=== PATIENT | male | born 1945 | race Caucasian/White ===

== ENCOUNTER 2017-12-02 23:30 | Inpatient (IN) | payer BC, MEDICARE ==
[~2017-12-02] VITALS: Ht 190.5 cm; Wt 106.3 kg
[2017-12-03] MEDS ORDERED: ONDANSETRON HCL MDV 20ML 2 MG/ML VIAL ONE
[2017-12-03] MEDS ORDERED: SODIUM CHLORIDE 0.9% 1000ML 1,000 ML IV ONE (00:01)
[2017-12-03 00:11] LABS: HEMATOCRIT 35.3 % (42-54); MEAN CORPUSCULAR HEMOGLOBIN 29.1 pg (27.0-33.0); MEAN CORPUSCULAR HGB CONC 33.3 g/dL (32.0-36.0); NUCLEATED RED BLOOD CELLS 0.1 % (0.0-0.19); WHITE BLOOD COUNT (AUTO) 4.2 K/uL (4.8-10.8)
[2017-12-03 00:13] LABS: CREATININE 0.7 mg/dL (0.5-1.5); POTASSIUM 3.8 mmol/L (3.5-5.1)
[2017-12-03 00:22] LABS: ALBUMIN 2.6 g/dL (3.5-5.0); BILIRUBIN,TOTAL 15.2 mg/dL (0.2-1.0); MEAN CORPUSCULAR VOLUME 87.5 fL (79-99); PLATELET COUNT (AUTO) 130 K/uL (130-400); RED BLOOD CELL COUNT(AUTO) 4.03 MIL/uL (4.50-6.20); RED CELL DISTRIBUTION WIDTH 20.3 % (11.0-15.5); TOTAL PROTEIN, SERUM 6.8 g/dL (6.0-8.3)
[2017-12-03 00:23] LABS: BILIRUBIN,DIRECT 13.1 mg/dL (0.0-0.3)
[2017-12-03 00:26] LABS: AMYLASE 38 U/L (25-115); LIPASE 379 U/L (114-286)
[2017-12-03 00:47] LABS: BAND NEUTROPHILS % (MANUAL) 11 % (0-2); LYMPHOCYTES % (MANUAL) 19 % (22-44); MONOCYTES % (MANUAL) 7 % (2-9); SEGMENTED NEUTROPHILS % 63 % (40-70)
[2017-12-03 00:48] LABS: MAN.DIFF COMMENT-IMPRESSION MANUAL DIFFERENTIAL
[2017-12-03 00:51] LABS: BILIRUBIN,URINE Large (NEGATIVE); GLUCOSE, URINE (UA) >=1000 mg/dL (NEGATIVE); KETONES,URINE Negative (NEGATIVE); LEUKOCYTE ESTERASE ,URINE Trace (NEGATIVE); NITRATE,URINE Positive (NEGATIVE); OCCULT BLOOD,URINE Negative (NEGATIVE); PROTEIN,URINE Trace (NEGATIVE)
[2017-12-03 00:53] LABS: APPEARANCE,URINE SLIGHTLY CLOUDY (CLEAR); COLOR,URINE AMBER (YELLOW)
[2017-12-03 00:54] LABS: PLATELET MORPHOLOGY COMMENT ADEQUATE
[2017-12-03 01:04] LABS: BACTERIA,URINE None Seen /HPF (None Seen); RBC,URINE 0-1 /HPF (0-1); WBC,URINE 0-1 /HPF (0-1); YEAST,URINE BUDDING None Seen /HPF (None Seen)
[2017-12-03 01:05] LABS: MUCUS,URINE Rare LPF (None Seen); SQUAMOUS EPITHELIAL CELL,UR Rare /HPF (0-2)
[2017-12-03 05:24] LABS: CREATININE 0.7 mg/dL (0.5-1.5); POTASSIUM 3.9 mmol/L (3.5-5.1)
[2017-12-03 05:28] LABS: HEMATOCRIT 35.7 % (42-54); MEAN CORPUSCULAR HEMOGLOBIN 29.2 pg (27.0-33.0); MEAN CORPUSCULAR VOLUME 88.3 fL (79-99); NUCLEATED RED BLOOD CELLS 0.1 % (0.0-0.19); PLATELET COUNT (AUTO) 132 K/uL (130-400); RED BLOOD CELL COUNT(AUTO) 4.04 MIL/uL (4.50-6.20); RED CELL DISTRIBUTION WIDTH 20.4 % (11.0-15.5); WHITE BLOOD COUNT (AUTO) 4.7 K/uL (4.8-10.8)
[2017-12-03 05:30] VITALS: BP 141/67
[2017-12-03 06:05] LABS: BAND NEUTROPHILS % (MANUAL) 6 % (0-2); BASOPHILS % (MANUAL) 2 % (0-2); EOSINOPHILS % (MANUAL) 2 % (1-6); LYMPHOCYTES % (MANUAL) 21 % (22-44); MONOCYTES % (MANUAL) 9 % (2-9); REACTIVE LYMPHOCYTES 1 % (0-0); SEGMENTED NEUTROPHILS % 59 % (40-70)
[2017-12-03 06:06] LABS: MAN.DIFF COMMENT-IMPRESSION MANUAL DIFFERENTIAL
[2017-12-03 06:07] LABS: PLATELET MORPHOLOGY COMMENT ADEQUATE
[2017-12-03] MEDS ORDERED: MORPHINE SULFATE 4 MG/1ML SYG ONE (06:49)
[2017-12-03] MEDS: MORPHINE SULFATE 4 MG/1ML SYG IVP PRN ×2 (06:54→21:00)
[2017-12-03] MEDS ORDERED: PANTOPRAZOLE 40 MG/VIAL IVP SCH (09:00)
[2017-12-03] MEDS ORDERED: ONDANSETRON HCL MDV 20ML 2 MG/ML VIAL IVP PRN (09:45)
[2017-12-03] MEDS ORDERED: SODIUM CHLORIDE 0.9% 1000ML 1,000 ML IV SCH (09:45)
[2017-12-03] MEDS ORDERED: KETOROLAC TROMETHAMINE 30MG/ML IV PRN (09:45)
[2017-12-03] MEDS ORDERED: MORPHINE SULFATE 4 MG/1ML SYG IVP PRN (09:45)
[2017-12-03] MEDS ORDERED: ACETAMINOPHEN 325 MG TAB PO PRN (09:45)
[2017-12-03] MEDS ORDERED: ZOLPIDEM TARTRATE 5 MG TAB PO PRN (09:45)
[2017-12-03] MEDS: FAMOTIDINE/PF 20 MG/2 ML VIAL IV SCH ×2 (10:00→21:07)
[2017-12-03] MEDS: CEFTRIAXONE SODIUM 2 GM VIAL IVP SCH (10:03)
[2017-12-03] MEDS ORDERED: PRAV20TA4 PO (10:29)
[2017-12-03] MEDS ORDERED: SENN25TA PO (10:29)
[2017-12-03] MEDS ORDERED: VENL75TA63 PO (10:29)
[2017-12-03] MEDS ORDERED: OMEP20TA25 PO (10:29)
[2017-12-03] MEDS ORDERED: ASCO100033 PO (10:29)
[2017-12-03] MEDS ORDERED: BETA1TAB20 PO (10:29)
[2017-12-03] MEDS ORDERED: FEXO180T94 PO (10:29)
[2017-12-03] MEDS ORDERED: SELE5TAB10 PO (10:30)
[2017-12-03] MEDS ORDERED: CANA300T PO (10:30)
[2017-12-03] MEDS ORDERED: CARB-38 PO (10:30)
[2017-12-03] MEDS ORDERED: FOLI1TAB15 PO (10:30)
[2017-12-03] MEDS ORDERED: GABA-531 PO (10:30)
[2017-12-03] MEDS ORDERED: IOPAMIDOL-370 100 ML VIAL IV ONE (11:09)
[2017-12-03 11:43] LABS: INR 1.13 (0.85-1.15); PARTIAL THROMBOPLASTIN TIME 29.7 SEC (26.3-35.5); PROTHROMBIN TIME 11.8 SEC (9.6-11.6)
[2017-12-03 12:27] VITALS: BP 121/59
[2017-12-03] MEDS: CARBIDOPA-LEVODOPA 25-100 TAB PO SCH ×2 (15:34→20:56)
[2017-12-03 16:00] VITALS: BP 119/55
[2017-12-03] MEDS: INSULIN LISPRO 100 UNIT/ML 3ML SQ SCH ×2 (16:30→21:00)
[2017-12-03] MEDS ORDERED: PEG 3350/NA SULF,BICARB,CL/KCL 4000 ML SOLN PO SCH (17:00)
[2017-12-03 20:00] VITALS: BP 128/66
[2017-12-03] MEDS: ATORVASTATIN CALCIUM 10 MG TABLET PO SCH (20:56)
[2017-12-03] MEDS: SELEGILINE HCL 5 MG PO SCH (21:00)
[2017-12-03 23:51] VITALS: BP 123/64
[2017-12-04] VITALS (12 sets, daily range): BP systolic 89–148; BP diastolic 34–68
[2017-12-04 06:02] LABS: BASOPHILS % (AUTO) 2.9 % (0.0-5.0); EOSINOPHILS % (AUTO) 1.6 % (0.0-8.0); HEMATOCRIT 32.3 % (42-54); LYMPHOCYTES % (AUTO) 58.9 % (21.0-51.0); MEAN CORPUSCULAR HEMOGLOBIN 30.7 pg (27.0-33.0); MEAN CORPUSCULAR HGB CONC 35.2 g/dL (32.0-36.0); MEAN CORPUSCULAR VOLUME 87.3 fL (79-99); MONOCYTES % (AUTO) 12.4 % (3.0-13.0); NEUTROPHILS % (AUTO) 24.2 % (40.0-77.0); NUCLEATED RED BLOOD CELLS 0.1 % (0.0-0.19); PLATELET COUNT (AUTO) 115 K/uL (130-400); RED CELL DISTRIBUTION WIDTH 20.6 % (11.0-15.5); WHITE BLOOD COUNT (AUTO) 4.5 K/uL (4.8-10.8)
[2017-12-04] MEDS: INSULIN LISPRO 100 UNIT/ML 3ML SQ SCH ×4 (06:20→21:00)
[2017-12-04 06:29] LABS: ALBUMIN 2.4 g/dL (3.5-5.0); CREATININE 0.7 mg/dL (0.5-1.5); POTASSIUM 3.6 mmol/L (3.5-5.1); TOTAL PROTEIN, SERUM 6.1 g/dL (6.0-8.3)
[2017-12-04 06:41] LABS: BILIRUBIN,TOTAL 17.5 mg/dL (0.2-1.0)
[2017-12-04] MEDS: PANTOPRAZOLE SODIUM 40 MG TABLET.DR PO SCH (07:30)
[2017-12-04] MEDS: FOLIC ACID 1 MG TABLET PO SCH (09:00)
[2017-12-04] MEDS: ASCORBIC ACID 500 MG TAB PO SCH (09:00)
[2017-12-04] MEDS: MULTIVITAMIN WITH MINERALS TABLET PO SCH (09:00)
[2017-12-04] MEDS: ***HM***(Fexofenadine HCl (Allegra Allergy) 180 MG) PO SCH (09:00)
[2017-12-04] MEDS: CARBIDOPA-LEVODOPA 25-100 TAB PO SCH ×3 (09:00→22:05)
[2017-12-04] MEDS: GABAPENTIN 300 MG CAPSULE PO SCH (09:00)
[2017-12-04] MEDS: SELEGILINE HCL 5 MG PO SCH ×2 (09:00→21:00)
[2017-12-04] MEDS: SENNOSIDES 50 MG PO SCH (09:00)
[2017-12-04] MEDS: CANAGLIFLOZIN 300 MG PO SCH (09:00)
[2017-12-04] MEDS: VENLAFAXINE HCL 75 MG TAB PO SCH (09:00)
[2017-12-04] MEDS: FAMOTIDINE/PF 20 MG/2 ML VIAL IV SCH ×2 (09:40→22:05)
[2017-12-04] MEDS: CEFTRIAXONE SODIUM 2 GM VIAL IVP SCH (09:40)
[2017-12-04] MEDS ORDERED: FENTANYL CITRATE PF 50 MCG/1 ML 2ML VIAL ONE (10:43)
[2017-12-04] MEDS ORDERED: LIDOCAINE HCL 2% 20ML ONE (10:44)
[2017-12-04] MEDS ORDERED: PROPOFOL 10 MG/ML 20ML VIAL IV ONE (10:44)
[2017-12-04] MEDS ORDERED: GLYCOPYRROLATE 0.2 MG/ML 5 ML VIAL ONE (10:44)
[2017-12-04] MEDS: MORPHINE SULFATE 4 MG/1ML SYG IVP PRN ×2 (14:01→22:20)
[2017-12-04] MEDS: ATORVASTATIN CALCIUM 10 MG TABLET PO SCH (22:05)
[2017-12-05 03:59] VITALS: BP 105/57
[2017-12-05 05:58] LABS: INR 1.15 (0.85-1.15)
[2017-12-05 06:04] LABS: HEMATOCRIT 33.2 % (42-54); MEAN CORPUSCULAR HEMOGLOBIN 30.4 pg (27.0-33.0); MEAN CORPUSCULAR HGB CONC 34.7 g/dL (32.0-36.0); MEAN CORPUSCULAR VOLUME 87.7 fL (79-99); PLATELET COUNT (AUTO) 107 K/uL (130-400); RED BLOOD CELL COUNT(AUTO) 3.79 MIL/uL (4.50-6.20); RED CELL DISTRIBUTION WIDTH 21.4 % (11.0-15.5); WHITE BLOOD COUNT (AUTO) 3.7 K/uL (4.8-10.8)
[2017-12-05 06:14] LABS: ALBUMIN 2.3 g/dL (3.5-5.0); CREATININE 0.8 mg/dL (0.5-1.5); POTASSIUM 4.8 mmol/L (3.5-5.1)
[2017-12-05 06:17] LABS: BILIRUBIN,TOTAL 16.6 mg/dL (0.2-1.0)
[2017-12-05 06:29] LABS: BAND NEUTROPHILS % (MANUAL) 8 % (0-2); EOSINOPHILS % (MANUAL) 3 % (1-6); LYMPHOCYTES % (MANUAL) 16 % (22-44); MONOCYTES % (MANUAL) 13 % (2-9); REACTIVE LYMPHOCYTES 3 % (0-0); SEGMENTED NEUTROPHILS % 57 % (40-70)
[2017-12-05 06:30] LABS: MAN.DIFF COMMENT-IMPRESSION MANUAL DIFFERENTIAL
[2017-12-05] MEDS: INSULIN LISPRO 100 UNIT/ML 3ML SQ SCH ×4 (06:34→21:00)
[2017-12-05] MEDS: PANTOPRAZOLE SODIUM 40 MG TABLET.DR PO SCH (06:34)
[2017-12-05 08:26] VITALS: BP 106/57
[2017-12-05] MEDS: SELEGILINE HCL 5 MG PO SCH ×2 (09:00→21:00)
[2017-12-05] MEDS: CANAGLIFLOZIN 300 MG PO SCH (09:00)
[2017-12-05] MEDS: MULTIVITAMIN WITH MINERALS TABLET PO SCH (09:00)
[2017-12-05] MEDS: ***HM***(Fexofenadine HCl (Allegra Allergy) 180 MG) PO SCH (09:00)
[2017-12-05] MEDS: SENNOSIDES 50 MG PO SCH (09:00)
[2017-12-05] MEDS: CEFTRIAXONE SODIUM 2 GM VIAL IVP SCH (10:09)
[2017-12-05] MEDS: ASCORBIC ACID 500 MG TAB PO SCH (10:10)
[2017-12-05] MEDS: VENLAFAXINE HCL 75 MG TAB PO SCH (10:10)
[2017-12-05] MEDS: FAMOTIDINE/PF 20 MG/2 ML VIAL IV SCH ×2 (10:10→21:12)
[2017-12-05] MEDS: CARBIDOPA-LEVODOPA 25-100 TAB PO SCH ×3 (10:10→21:12)
[2017-12-05] MEDS: FOLIC ACID 1 MG TABLET PO SCH (10:10)
[2017-12-05] MEDS: GABAPENTIN 300 MG CAPSULE PO SCH (10:11)
[2017-12-05 12:34] VITALS: BP 113/57
[2017-12-05] MEDS: MORPHINE SULFATE 4 MG/1ML SYG IVP PRN ×2 (13:53→21:40)
[2017-12-05 16:00] VITALS: BP 106/64
[2017-12-05 20:00] VITALS: BP 115/48
[2017-12-05] MEDS: ATORVASTATIN CALCIUM 10 MG TABLET PO SCH (21:12)
[2017-12-06] VITALS: BP 116/54
[2017-12-06 04:00] VITALS: BP 128/63
[2017-12-06] MEDS: INSULIN LISPRO 100 UNIT/ML 3ML SQ SCH (06:43)
[2017-12-06] MEDS: PANTOPRAZOLE SODIUM 40 MG TABLET.DR PO SCH (06:46)
[2017-12-06] MEDS: ***HM***(Fexofenadine HCl (Allegra Allergy) 180 MG) PO SCH (09:00)
[2017-12-06] MEDS: CANAGLIFLOZIN 300 MG PO SCH (09:00)
[2017-12-06] MEDS: GABAPENTIN 300 MG CAPSULE PO SCH (09:00)
[2017-12-06] MEDS: SENNOSIDES 50 MG PO SCH (09:00)
[2017-12-06] MEDS: VENLAFAXINE HCL 75 MG TAB PO SCH (09:00)
[2017-12-06] MEDS: FOLIC ACID 1 MG TABLET PO SCH (09:00)
[2017-12-06] MEDS: CARBIDOPA-LEVODOPA 25-100 TAB PO SCH (09:00)
[2017-12-06] MEDS: MULTIVITAMIN WITH MINERALS TABLET PO SCH (09:00)
[2017-12-06] MEDS: ASCORBIC ACID 500 MG TAB PO SCH (09:00)
[2017-12-06] MEDS: SELEGILINE HCL 5 MG PO SCH (09:00)
[2017-12-06] MEDS: MORPHINE SULFATE 4 MG/1ML SYG IVP PRN (09:17)
[2017-12-06] MEDS: FAMOTIDINE/PF 20 MG/2 ML VIAL IV SCH (09:21)
[2017-12-06] MEDS: CEFTRIAXONE SODIUM 2 GM VIAL IVP SCH (09:21)
[2017-12-06 10:13] VITALS: BP 114/57
[2017-12-06 12:44] VITALS: BP 120/58
== END 2017-12-06 16:35 | disposition home or self-care (01) | DRG 436 ==
LOC: EDH 23:30 → OBSVTOIN 12-03 03:24 → EDHIP 12-03 03:24 → 3BH 12-03 04:57
PROVIDERS: ADMIT Internal Medicine Nephrology; ATTEND Internal Medicine Nephrology
PROC: 0DBK8ZZ Excision of Ascending Colon, Via Natural or Artificial Opening Endoscopic (ICD-10-PCS; principal; 2017-12-04)
PROC: 0DBL8ZZ Excision of Transverse Colon, Via Natural or Artificial Opening Endoscopic (ICD-10-PCS; 2017-12-04)
PROC: 0DBN8ZZ Excision of Sigmoid Colon, Via Natural or Artificial Opening Endoscopic (ICD-10-PCS; 2017-12-04)
PROC: 06L38CZ Occlusion of Esophageal Vein with Extraluminal Device, Via Natural or Artificial Opening Endoscopic (ICD-10-PCS; 2017-12-04)
PROC: 0DB68ZX Excision of Stomach, Via Natural or Artificial Opening Endoscopic, Diagnostic (ICD-10-PCS; 2017-12-04)
DX: C22.0 Liver cell carcinoma (principal); I85.00 Esophageal varices without bleeding; G20 Parkinson's disease; E11.9 Type 2 diabetes mellitus without complications; J32.9 Chronic sinusitis, unspecified; K29.70 Gastritis, unspecified, without bleeding; K63.5 Polyp of colon; K70.30 Alcoholic cirrhosis of liver without ascites; K80.20 Calculus of gallbladder without cholecystitis without obstruction; Z60.2 Problems related to living alone; Z80.42 Family history of malignant neoplasm of prostate
CPT/HCPCS: 36415; 71250; 74160; 74176; 76705; 80048; 80053; 80076; 81001; 82105; 82140; 82150; 82948; 83690; 84484; 85007; 85025; 85610; 85730; 88305; 88312; 93005; A4218; C9113; J0696; J2270; J2704; J3010; J3490; J7030; Q9967